=== PATIENT | female | born 1930 | race Caucasian/White ===

== ENCOUNTER 2016-12-16 15:23 | Inpatient (IN) | payer MEDICARE ==
[2016-12-16] MEDS ORDERED: Ondansetron HCl/PF 4 MG/2 ML Vial ONE ×3 (16:16→19:32)
[2016-12-16 16:27] LABS: #Eosinphils 0.1 thou/uL (0.0-0.7); #Lymphocytes 0.6 thou/uL (1.20-3.40); #Monocytes 0.6 thou/uL (0.11-0.59); #Neutrophils 5.3 thou/uL (1.40-6.50); %Basophils 0.7 % (0.0-1.0); %Eosinophils 0.8 % (0.0-10.0); %Monocytes 9.3 % (0.0-10.0); Hematocrit 40.6 % (36.0-47.0); Mean Platelet Volume 5.7 fL (7.4-10.4); Red Blood Cell (RBC) Count 4.38 mill/uL (4.20-5.40); White Blood Cell (WBC) Count 6.5 thou/uL (4.8-10.8)
[2016-12-16 16:42] LABS: ALT (SGPT) 13 U/L (0-55); AST (SGOT) 16 U/L (5-34); Alkaline Phosphatase 61 U/L (40-150); Anion Gap 13 mmol/L (10-20); BUN (Urea Nitrogen) 5 mg/dL (9.8-20.1); Bilirubin, Total 0.7 mg/dL (0.2-1.2); Calc. Creatinine Clearance 0 mL/min (70-130); Calcium 9.5 mg/dL (7.8-10.44); Carbon Dioxide 27 mmol/L (23-31); Chloride 87 mmol/L (98-107); Estimated GFR-MDRD Greater than 90; Globulin 2.7 g/dL (2.4-3.5); Lipase 15 U/L (8-78); Protein, Total 6.8 g/dL (5.8-8.1)
[2016-12-16 17:11] LABS: Bilirubin Negative (Negative); Blood, Urine Trace (Negative); Glucose, Urine (Dipstick) Negative (Negative); Ketone, Urine Negative (Negative); Nitrite Positive (Negative); Protein, Urine (Dipstick) 30 mg/dL (Neg-Trace); Urobilinogen 0.2 mg/dL (0.2-1.0)
[2016-12-16 17:26] LABS: Bacteria/HPF 4+ HPF (None Seen); Hyaline Casts/LPF NONE SEEN LPF (0-3 Hyaline); Oval Fat Bodies/HPF None Seen HPF (None Seen); RBC/HPF 0-3 HPF (0-3); Renal Epithelial None Seen HPF (0-3); Sperm/HPF None Seen HPF (None Seen); Squamous Epithelial 0-3 HPF (0-3); Transitional Epithelial NONE SEEN HPF (0-3); Trichomonas/HPF None Seen HPF (None Seen); WBC/HPF 0-3 HPF (0-3); Yeast-All Forms None Seen HPF (None Seen)
[2016-12-16] MEDS ORDERED: Sodium Chloride 0.9% 100 ML ONE (18:03)
[2016-12-16] MEDS ORDERED: cefTRIAXone\\ROCEPHIN 1 GM VIAL ONE (18:03)
--- NOTE | 2016-12-16 19:28 | PICIS ---
[facility] EMERGENCY RECORD TRIAGE (FriDec 16, 2016 15:34 LGIB) TRIAGE NOTES: abd pain that described as sharp that started last night. normal bowel movements. feels like her stomach is "swollen". no nausea, no diarrhea. (FriDec 16, 2016 15:34 LGIB) PATIENT: NAME: Ann Mcgarry, AGE: 86, GENDER: female, : Sun 1930, TIME OF GREET: FriDec 16, 2016 15:23, PREFERRED LANGUAGE: Slovak, ETHNICITY: Not or , ECODE BILLING MAP: [facility], SSN: [id number], Zip Code: [address], KG WEIGHT: 56.70, PHONE: , , , PERSON ID: [id number], PAYMENT: [place] Medicare, PCP: MD Acosta Kyle. (FriDec 16, 2016 15:34 LGIB) COMPLAINT: abd pain. (FriDec 16, 2016 15:34 LGIB) ADMISSION: URGENCY: 3 Urgent, ADMISSION SOURCE: Home, TRANSPORT: CAR, BED: TRIAGE. (FriDec 16, 2016 15:34 LGIB) SIRS SCORING: Heart Rate 55-109 (0), Temp range 96.8-101.1 (0), respiratory rate 12-24 (0), Mental Status altered: no (0), Total SIRS Score 0. (17:34 LGIB) PROVIDERS: TRIAGE NURSE: Tatiana Neal RN. (FriDec 16, 2016 15:34 LGIB) PREVIOUS VISIT ALLERGIES: Penicillins. (FriDec 16, 2016 15:34 LGIB) Penicillins. (15:37 LGIB) KNOWN ALLERGIES Penicillins CURRENT MEDICATIONS Unable to obtain (17:15 KMOR) lisinopril: TABLET : Strength - 20 mg : ORAL Patient Dose: 1 tab(s) Oral once a day. (18:33 LGIB) amLODIPine: TABLET : Strength - 10 mg : ORAL Patient Dose: 1 tab(s) Oral once a day. (18:33 LGIB) Eliquis: TABLET : Strength - 5 mg : ORAL Patient Dose: 1 tab(s) Oral 2 times a day. (18:34 LGIB) meTOPROLOL ta-hydrochlorothiaz: TABLET : Strength - 100 mg-50 mg : ORAL Patient Dose: 1 tab(s) Oral once a day. (18:34 LGIB) VITAL SIGNS VITAL SIGNS: Pulse: 53, Resp: 18 (Non-Labored), Pain: 7, O2 sat: 100 on Room Air, Time: 12/16/2016 15:34. (15:34 LGIB) BP: 195/64, Time: 12/16/2016 15:37. (15:37 LGIB) BP: 172/74, Pulse: 62, Resp: 18, Pain: 6, O2 sat: 98 on Room Air, Time: 12/16/2016 16:30. (16:30 KMOR) Temp: 97.9 (Axillary), Time: 12/16/2016 16:39. (16:39 KMOR) BP: 167/69, Pulse: 67, Resp: 18 (Non-Labored), O2 sat: 97 on Room Air, Time: 12/16/2016 18:30. (18:30 LGIB) &a-1R&a+25V*p+0X*i3547Q*c202B*c15G*c2P*p-0X&a-25V&a+1R Name: Ann Mcgarry : 1930 F86 MedRec: [id number] AcctNum: [id number] Prepared: FriDec 16, 2016 19:17 by Interface Page 1 of 13 pMD [facility] EMERGENCY RECORD NURSING ASSESSMENT: ABDOMEN (16:40 KMOR) CONSTITUTIONAL: Patient arrives ambulatory, Unsteady gait, Assistance to cart, History obtained from patient, Patient appears comfortable, Patient cooperative, Patient alert, Oriented to person, place and time, Skin warm, Skin dry, Skin normal in color, Mucous membranes pink, Mucous membranes moist, Patient is well-groomed, Patient complains of Abdominal pain, Diffuse abdominal pain started last night. No nausea, no vomiting no diarrhea. PAIN: aching pain, sharp pain, diffusely, on a scale 0-10 patient rates pain as 6. ABDOMEN: Abdomen assessment findings include abdomen symmetrical, Abdomen soft, non-tender, Bowel sound normal, no associated nausea, no associated vomiting, no associated diarrhea, no associated constipation, Date of last bowel movement: 12/15/2016. LMP: Last menstrual period not applicable due to hysterectomy history. GENITOURINARY FEMALE: no associated urinary complaints. NOTES: Patient tolerated procedure well. NURSING ASSESSMENT: FALL RISK (18:43 LGIB) FALL RISK: Fall risk assessment findings include: no history of falls (0), No bed rest greater than 2 days (0), No use of level of consciousness altering agents with mentation or cognitive changes (0), No change in blood pressure (0), No sensory deficits (0), Impaired mobility (3), No neurologic diagnosis (0), No elimination problems (0), No confusion (0), Total score 3. NURSING ASSESSMENT: SKIN (18:43 LGIB) SKIN: Notes: BLANCHABLE REDNESS TO SACRUM. NURSING PROCEDURE: ADMISSION (18:54 LGIB) ADMISSION: Patient admitted to a medical-surgical unit, room number 104, Report called to, Mariah, Provided opportunity to answer questions, Report called at 12/16/2016 18:54, Patient Admited at. 12/16/2016 18:55, Acuity level urgent, Transported via cart/stretcher, Accompanied by registered nurse, Transported with disposable blood pressure cuff, Transported with saline lock, Summary of Care printed. BELONGINGS: Belongings and valuables with patient at time of admission include:, Belongings remain with patient, Valuables remain with patient. NURSING PROCEDURE: FRESCO ARTIST (16:30 KMOR) PATIENT IDENTIFIER: Patient actively involved in identification process, Patient's identity verified by patient stating name, Patient's identity verified by patient stating date. FRESCO ARTIST: Patient placed on cardiac nurse practitioner, Heart rate: &a-1R&a+25V*p+0X*h5085X*c202B*c15G*c2P*p-0X&a-25V&a+1R Name: Ann Mcgarry : 1930 F86 MedRec: [id number] AcctNum: [id number] Prepared: FriDec 16, 2016 19:17 by Interface Page 2 of 13 pMD [facility] EMERGENCY RECORD 62, showing normal sinus rhythm, Patient placed on non-invasive blood pressure monitor, with disposable blood pressure cuff applied, Patient placed on continuous pulse oximetry, Adult/pediatric oxisensor applied, Oxygen saturation 98%. NOTES: Patient tolerated procedure well. NURSING PROCEDURE: EKG CHART (16:32 KMOR) PATIENT IDENTIFIER: Patient actively involved in identification process, Patient's identity verified by patient stating name, Patient's identity verified by patient stating date. EKG: EKG indicated for abdominal pain, 12 lead EKG performed on the left chest, done by SEEMA Hernandez, first EKG. FOLLOW-UP: After procedure, EKG for interpretation given to Dr. nash. NOTES: Patient tolerated procedure well. NURSING PROCEDURE: ELIMINATION (16:35 KMOR) PATIENT IDENTIFIER: Patient actively involved in identification process, Patient's identity verified by patient stating name, Patient's identity verified by patient stating date. ELIMINATION: Patient given bedpan, Urine output (mL) 300ml, Urine specimen collected, labeled in the presence of the patient and sent to lab. NURSING PROCEDURE: IV (16:00 KMOR) PATIENT IDENITIFIER: Patient actively involved in identification process, Patient's identity verified by patient stating name, Patient's identity verified by patient stating date. IV SITE 1: IV therapy indicated for hydration, IV therapy indicated for medication administration, IV established, to the right antecubital, using a 20 gauge catheter, Saline lock established, Labs drawn at time of placement, labeled in the presence of the patient and sent to lab. FOLLOW-UP SITE 1: After procedure, 2x3 ensure dressing applied. NOTES: Procedure done by SEEMA Frazeir. NURSING PROCEDURE: NURSE NOTES (17:33 LGIB) NURSES NOTES: Notes: pt voided on bedpan for the second time. NURSING PROCEDURE: TRANSPORT TO TESTS (17:52 LGIB) TRANSPORT TO TESTS: Transport indicated to facilitate diagnosis, Patient transported to CT scan, via cart, Accompanied by x-ray photovoltaic technician. NURSING PROCEDURE: URINE COLLECTION (16:50 KMOR) PATIENT IDENTIFIER: Patient actively involved in identification process, Patient's identity verified by patient stating name, Patient's identity verified by patient stating date. URINE COLLECTION FEMALE: Urine collected by mid-stream clean &a-1R&a+25V*p+0X*s5446E*c202B*c15G*c2P*p-0X&a-25V&a+1R Name: Ann Mcgarry : 1930 F86 MedRec: [id number] AcctNum: [id number] Prepared: FriDec 16, 2016 19:17 by Interface Page 3 of 13 pMD [facility] EMERGENCY RECORD catch, Output amount (mL) 300ml, urine yellow in color, and clear, Specimen labeled in the presence of the patient and sent to lab. ORDER DETAILS Order Name: FRESCO ARTIST ED, Status: Done, Time: 16:28 12/16/2016, User: HILTON, - Ordered for: DO Hayden Allen, - Entered by: DO Hayden Allen - FriDec 16, 2016 16:13, - Quantity: 1, Order Name: CBC with Differential, Status: Active, Time: 16:13 12/16/2016, User: OTISRI, - Ordered for: Hayden, DO Allen, - Entered by: DO Hayden Allen - FriDec 16, 2016 16:13, - Quantity: 1, Order Name: Comprehensive Metabolic Panel, Status: Active, Time: 16:13 12/16/2016, User: OTISRI, - Ordered for: [place], DO Allen, - Entered by: DO Hayden Allen - FriDec 16, 2016 16:13, - Quantity: 1, Order Name: CT Abdomen Pelvis W Con, Status: Active, Time: 16:13 12/16/2016, User: OTISRI, - Ordered for: [place], DO, Allen, - Entered by: DO Hayden Allen - FriDec 16, 2016 16:13, - Quantity: 1, Order Name: Culture, Urine, Status: Active, Time: 17:38 12/16/2016, User: MBRI, - Ordered for: Hayden, DO, Allen, - Entered by: DO Hayden Allen - FriDec 16, 2016 17:38, - Quantity: 1, Order Name: Diet: Nothing by Mouth (NPO), Status: Done, Time: 16:28 12/16/2016, User: JACEIB, - Ordered for: [place], DO, Allen, - Entered by: DO Hayden Allen - FriDec 16, 2016 16:13, - Quantity: 1, Order Name: EKG 12 Lead in Emergency Room, Status: Active, Time: 16:13 12/16/2016, User: VI, - Ordered for: DO Nash Matthew, - Entered by: DO Nash Matthew - FriDec 16, 2016 16:13, - Quantity: 1, Order Name: Lipase, Status: Active, Time: 16:13 12/16/2016, User: VI, - Ordered for: DO Nash Matthew, - Entered by: DO Nash Matthew - FriDec 16, 2016 16:13, - Quantity: 1, Order Name: SALINE LOCK, Status: Done, Time: 16:28 12/16/2016, User: [facility], - Ordered for: DO Nash Matthew, - Entered by: DO Nash Matthew - FriDec 16, 2016 16:13, - Quantity: 1, &a-1R&a+25V*p+0X*o0381O*c202B*c15G*c2P*p-0X&a-25V&a+1R Name: Ann Mcgarry : 1930 F86 MedRec: [id number] AcctNum: [id number] Prepared: FriDec 16, 2016 19:17 by Interface Page 4 of 13 pMD [facility] EMERGENCY RECORD Order Name: Urinalysis w/ Rflx Microscopic, Status: Active, Time: 16:13 12/16/2016, User: VI, - Ordered for: DO Nash Matthew, - Entered by: DO Nash Matthew - FriDec 16, 2016 16:13, - Quantity: 1. MEDICATION ADMINISTRATION SUMMARY Drug Name: *ondansetron HCl intravenous, Dose Ordered: 4 mg, Route: IV Push, Status: Given, Time: 19:00 12/16/2016, Drug Name: morphine injection, Dose Ordered: 4 mg, Route: IV Push, Status: Given, Time: 18:54 12/16/2016, Drug Name: cefTRIAXone injection, Dose Ordered: 2 g, Route: IV Piggy Back, Status: Given, Time: 18:16 12/16/2016, Drug Name: Apresoline, Dose Ordered: 10 mg, Route: IV Push, Status: Given, Time: 18:10 12/16/2016, Drug Name: ondansetron HCl intravenous, Dose Ordered: 4 mg, Route: IV Push, Status: Given, Time: 17:18 12/16/2016, Drug Name: morphine injection, Dose Ordered: 4 mg, Route: IV Push, Status: Given, Time: 16:25 12/16/2016, Drug Name: sodium chloride 0.9 % intravenous, Dose Ordered: 500 mL, Route: IV Fluid Infusion, Status: Given, Time: 16:23 12/16/2016, Drug Name: ondansetron HCl intravenous, Dose Ordered: 4 mg, Route: IV Push, Status: Given, Time: 16:23 12/16/2016, *Additional information available in notes, Detailed record available in Medication Service section. MEDICATION SERVICE Apresoline: Order: Apresoline (hydralazine HCl) - Dose: 10 mg : IV Push Schedule: Now Ordered by: Allen Nash DO Entered by: Allen Nash DO FriDec 16, 2016 17:57 , Acknowledged by: Tatiana Neal RN FriDec 16, 2016 18:03 Documented as given by: Tatiana Neal RN FriDec 16, 2016 18:10 Patient, Medication, Dose, Route and Time verified prior to administration. IV SITE #1 IVP, subsequent different medication, Slowly, Catheter placement confirmed via flush prior to administration, IV site without signs or symptoms of infiltration during medication administration, No swelling during administration, No drainage during administration, IV flushed after administration, Correct patient, time, route, dose and medication confirmed prior to administration, Patient advised of actions and side-effects prior to administration, Allergies confirmed and medications reviewed prior to administration, Patient in position of comfort, Side rails up, Cart in lowest position, Family at bedside. : Follow Up : Decreased blood pressure, _IV SITE #1:_. (18:18 LGIB) cefTRIAXone injection: Order: cefTRIAXone injection (ceftriaxone &a-1R&a+25V*p+0X*l6819G*c202B*c15G*c2P*p-0X&a-25V&a+1R Name: Ann Mcgarry Garry : 1930 F86 MedRec: [id number] AcctNum: [id number] Prepared: FriDec 16, 2016 19:17 by Interface Page 5 of 13 pMD [facility] EMERGENCY RECORD sodium) - Dose: 2 g : IV Piggy Back POTENTIAL ALLERGY REACTION: 'Penicillins' - Benefits outweigh risks Schedule: Now Ordered by: Allen Nash DO Entered by: Allen Nash DO FriDec 16, 2016 17:39 , Acknowledged by: Tatiana Neal RN FriDec 16, 2016 17:41 Documented as given by: Tatiana Neal RN FriDec 16, 2016 18:16 Patient, Medication, Dose, Route and Time verified prior to administration. IV SITE #1 IVPB or drip, initial infusion, IVPB mixed in: 100ml, Fluid: 0.9NS, via primary tubing, on an IV pump, at 200 ml/hr, Catheter placement confirmed via flush prior to administration, IV site without signs or symptoms of infiltration during medication administration, No swelling during administration, No drainage during administration, IV flushed after administration, Correct patient, time, route, dose and medication confirmed prior to administration, Patient advised of actions and side-effects prior to administration, Allergies confirmed and medications reviewed prior to administration, Patient in position of comfort, Side rails up, Cart in lowest position, Family at bedside. : Follow Up : _IV SITE #1:_, Medication infusion discontinued, on FriDec 16, 2016 18:50, 35 minutes, ., Total amount infused: 100 ml. (18:50 BMAD) morphine injection: Order: morphine injection (morphine sulfate) - Dose: 4 mg : IV Push Ordered by: Allen Nash DO Entered by: Allen Nash DO FriDec 16, 2016 16:13 , Acknowledged by: Tatiana Neal RN FriDec 16, 2016 16:15 Documented as given by: Tatiana Neal RN FriDec 16, 2016 16:25 Patient, Medication, Dose, Route and Time verified prior to administration. IV SITE #1 IVP, subsequent different medication, Slowly, Awake and alert- acceptable, Catheter placement confirmed via flush prior to administration, IV site without signs or symptoms of infiltration during medication administration, No swelling during administration, No drainage during administration, IV flushed after administration, Correct patient, time, route, dose and medication confirmed prior to administration, Patient advised of actions and side-effects prior to administration, Allergies confirmed and medications reviewed prior to administration, Patient in position of comfort, Side rails up, Cart in lowest position, Family at bedside. : Follow Up : Response assessment performed, No signs or symptoms of allergic reaction noted, Decreased pain, _IV SITE #1:_. (17:17 KMOR) morphine injection: Order: morphine injection (morphine sulfate) - Dose: 4 mg : IV Push Ordered by: Allen Nash DO Entered by: Allen Nash DO FriDec 16, 2016 18:52 , Acknowledged by: Mary Zamora RN FriDec 16, 2016 18:53 Documented as given by: Dino Duran RN FriDec 16, 2016 18:54 &a-1R&a+25V*p+0X*l8895C*c202B*c15G*c2P*p-0X&a-25V&a+1R Name: Ann Mcgarry : 1930 F86 MedRec: [id number] AcctNum: [id number] Prepared: FriDec 16, 2016 19:17 by Interface Page 6 of 13 pMD [facility] EMERGENCY RECORD Patient, Medication, Dose, Route and Time verified prior to administration. Amount given: 4mg, IV SITE #1 IVP, subsequent different medication, Slowly, Awake and alert- acceptable, Catheter placement confirmed via flush prior to administration, IV site without signs or symptoms of infiltration during medication administration, No swelling during administration, No drainage during administration, IV flushed after administration, Correct patient, time, route, dose and medication confirmed prior to administration, Patient advised of actions and side-effects prior to administration, Allergies confirmed and medications reviewed prior to administration, Administered by Mary STEPHENSON, Patient in position of comfort, Side rails up, Cart in lowest position, Family at bedside. ondansetron HCl intravenous: Order: ondansetron HCl intravenous (ondansetron HCl) - Dose: 4 mg : IV Push Ordered by: Allen Nash DO Entered by: Allen Nash DO FriDec 16, 2016 16:13 , Acknowledged by: Tatiana Neal RN FriDec 16, 2016 16:15 Documented as given by: Tatiana Neal RN FriDec 16, 2016 16:23 Patient, Medication, Dose, Route and Time verified prior to administration. IV SITE #1 IVP, initial medication, Slowly, Catheter placement confirmed via flush prior to administration, IV site without signs or symptoms of infiltration during medication administration, No swelling during administration, No drainage during administration, IV flushed after administration, Correct patient, time, route, dose and medication confirmed prior to administration, Patient advised of actions and side-effects prior to administration, Allergies confirmed and medications reviewed prior to administration, Patient in position of comfort, Side rails up, Cart in lowest position, Family at bedside. : Follow Up : Response assessment performed, No signs or symptoms of allergic reaction noted, _IV SITE #1:_. (17:18 KMOR) ondansetron HCl intravenous: Order: ondansetron HCl intravenous (ondansetron HCl) - Dose: 4 mg : IV Push Ordered by: Allen Nash DO Entered by: Allen Nash DO FriDec 16, 2016 17:45 , Acknowledged by: Tatiana Neal RN FriDec 16, 2016 17:46 Documented as given by: Tatiana Neal RN FriDec 16, 2016 17:18 Patient, Medication, Dose, Route and Time verified prior to administration. IV SITE #1 IVP, subsequent different medication, Slowly, Catheter placement confirmed via flush prior to administration, IV site without signs or symptoms of infiltration during medication administration, No swelling during administration, No drainage during administration, IV flushed after administration, Correct patient, time, route, dose and medication confirmed prior to administration, Patient advised of actions and side-effects prior to administration, Allergies confirmed and medications reviewed prior to administration, Patient in position of comfort, Side rails up, Cart in lowest &a-1R&a+25V*p+0X*m0594E*c202B*c15G*c2P*p-0X&a-25V&a+1R Name: Ann Mcgarry : 1930 F86 MedRec: [id number] AcctNum: [id number] Prepared: FriDec 16, 2016 19:17 by Interface Page 7 of 13 pMD [facility] EMERGENCY RECORD position, Family at bedside. ondansetron HCl intravenous: Order: ondansetron HCl intravenous (ondansetron HCl) - Dose: 4 mg : IV Push Notes: VOV DR NASH Ordered by: Allen Nash DO Entered by: Tatiana Neal RN FriDec 16, 2016 19:00 Documented as given by: Tatiana Neal RN FriDec 16, 2016 19:00 Patient, Medication, Dose, Route and Time verified prior to administration. IV SITE #1 IVP, subsequent different medication, Slowly, Catheter placement confirmed via flush prior to administration, IV site without signs or symptoms of infiltration during medication administration, No swelling during administration, No drainage during administration, IV flushed after administration, Correct patient, time, route, dose and medication confirmed prior to administration, Patient advised of actions and side-effects prior to administration, Allergies confirmed and medications reviewed prior to administration, Patient in position of comfort, Side rails up, Cart in lowest position, Family at bedside. sodium chloride 0.9 % intravenous: Order: sodium chloride 0.9 % intravenous (0.9 % sodium chloride) - Dose: 500 mL : IV Fluid Infusion Schedule: Now Ordered by: Allen Nash DO Entered by: Allen Nash DO FriDec 16, 2016 16:13 , Acknowledged by: Tatiana Neal RN FriDec 16, 2016 16:15 Documented as given by: Tatiana Neal RN FriDec 16, 2016 16:23 Patient, Medication, Dose, Route and Time verified prior to administration. IV SITE #1 IV fluids established for hydration, IV SITE #1 into right antecubital, IV SITE #1 1st bag hung, amount 500ml hung, via primary tubing, Catheter placement confirmed via flush prior to administration, IV site without signs or symptoms of infiltration during medication administration, No swelling during administration, No drainage during administration, IV flushed after administration, Correct patient, time, route, dose and medication confirmed prior to administration, Patient advised of actions and side-effects prior to administration, Allergies confirmed and medications reviewed prior to administration, Patient in position of comfort, Side rails up, Cart in lowest position, Family at bedside. : Follow Up : _IV SITE #1:_, IV fluid infusion discontinued, on FriDec 16, 2016 17:15, 55 minutes, ., Total amount infused: 500ml, IV Line flushed after administration. (17:17 KMOR) HPI ABDOMINAL PAIN (16:16 MBRI) CHIEF COMPLAINTS: Patient presents for evaluation of abdominal pain. HISTORIAN: History provided by patient, History provided by patient's family. LOCATION FEMALE: Symptoms are localized, most severe periumbilical, no radiation, No migration of pain. QUALITY: &a-1R&a+25V*p+0X*l0958G*c202B*c15G*c2P*p-0X&a-25V&a+1R Name: Ann Mcgarry : 1930 F86 MedRec: [id number] AcctNum: [id number] Prepared: FriDec 16, 2016 19:17 by Interface Page 8 of 13 pMD [facility] EMERGENCY RECORD Pain is dull in nature, described as aching. SEVERITY: Maximum severity of symptoms moderate, Currently symptoms are moderate. TIME COURSE: Gradual onset of symptoms, 12 hours, Symptoms are intermittent, There has been no change in the patient's symptoms over time. ASSOCIATED WITH FEMALE: No associated recent antibiotic use, No associated bright red blood per rectum, No associated chills, No associated constipation, No associated diarrhea, No associated fever, No associated flank pain, No associated hematemesis, No associated hematuria, No associated loss of appetite, No associated melena, No associated nausea, No associated trauma, No associated recent travel, No associated inability to tolerate oral intake, Associated with urinary tract infection signs or symptoms, frequency, No associated vomiting. RELIEVED BY: Patient's condition relieved by nothing. EXACERBATED BY: Patient's condition exacerbated by nothing. RISK FACTORS FEMALE: No ectopic risk factors present, Abdominal aortic aneurysm risk factors, include age over 40 years, Coronary artery disease risk factors, include high cholesterol, include hypertension. ROS (16:11 MBRI) CONSTITUTIONAL: Negative constitutional review of systems, Historian denies chills, denies fever. EYES: Negative eye review of systems. ENT: Historian denies rhinorrhea, denies sore throat. CARDIOVASCULAR: Historian denies chest pain, denies dyspnea on exertion. RESPIRATORY: Historian denies cough, denies shortness of breath. GI: Negative gastrointestinal review of systems, Historian denies abdominal pain, denies diarrhea, denies nausea, denies vomiting. GENITOURINARY FEMALE: Historian denies dysuria, reports frequency, denies hematuria, denies urine output changes, denies urinary retention. MUSCULOSKELETAL: Historian denies injury, Denies any musculoskeletal pain. SKIN: Negative skin review of systems, Historian denies skin changes. NEUROLOGIC: Negative neurologic review of systems, Historian denies focal weakness, denies sensory changes. HEMO/LYMPHATIC: Historian reports abnormal blood clotting, reports easy bruising. PAST MEDICAL HISTORY (15:37 LGIB) MEDICAL HISTORY: Flu vaccine up to date, BREAST CANCER, Tetanus immunization up to date, Pneumococcal vaccine up to date, Past medical history includes history of hyperlipidemia, high cholesterol, Past medical history includes history of hypertension, which has been treated5. 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 FEMALE SURGICAL HISTORY: 4 EYE SURGERIES, LEFT SIDE MASTECTOMY, STEEL PLATE IN RIGHT WRIST, Surgical history of appendectomy, Surgical history of hysterectomy Mouth Sx april 20, 2015. PSYCHIATRIC HISTORY: No previous psychiatric history. SOCIAL HISTORY: Patient drinks every day, more than 5 drinks per day, Alcohol history notes: beer, Patient denies drug use, Patient has no smoking history. FAMILY HISTORY: Family istory is not significant. PHYSICAL EXAM (16:11 MBRI) CONSTITUTIONAL: Vital Signs Reviewed, Nursing notes reviewed. HEAD: Head exam included findings of head atraumatic, normocephalic. EYES: Eye exam included findings of eyelids normal to inspection, Pupils equally round and reactive to light, Extraocular muscles intact. 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 NECK: Neck exam normal, no cervical adenopathy, no tenderness. RESPIRATORY CHEST: Respiratory exam included findings of no respiratory distress, Breath sounds clear, No wheezing, No rales, No rhonchi. CARDIOVASCULAR: Cardiovascular exam included findings of heart rate regular rate and rhythm, Heart sounds normal, Carotids normal. ABDOMEN FEMALE: Abdominal exam included findings of abdomen tender, periumbilical, mild intensity, Bowel sounds normal, Liver normal, no distension, no mass, no pulsatile masses, no peritoneal signs, no rigidity, no guarding, no rebound, no umbilical hernia, no ventral hernia. BACK: Back exam included findings of normal inspection, no tenderness. UPPER EXTREMITY: Upper extremity exam included findings of inspection normal, Radial pulse normal, no cyanosis, no clubbing, no edema. LOWER EXTREMITY: Lower extremity exam included findings of inspection normal, Range of motion normal, Motor strength normal, Sensation intact, Pedal pulse normal, no cyanosis, no clubbing, Edema present, to bilateral lower extremities, +1, no calf tenderness, no palpable cords. NEURO: Neuro exam findings include patient oriented to person, place and time, Speech normal, no focal motor deficits. SKIN: Skin exam included findings of skin warm, dry, and normal in color. LAB INTERPRETATION (18:15 MBRI) &a-1R&a+25V*p+0X*k1936Y*c202B*c15G*c2P*p-0X&a-25V&a+1R Name: nAn Mcgarry : 1930 F86 MedRec: [id number] AcctNum: [id number] Prepared: FriDec 16, 2016 19:17 by Interface Page 10 of 13 D [facility] EMERGENCY RECORD INTERPRETATION: I reviewed the lab results. EVENTS TRANSFER: Triage to Emergency Triage. (FriDec 16, 2016 15:34 LGIB) Emergency Triage to Waiting. (15:37 LGIB) Emergency Waiting to Emergency Room -02. (15:57 KMOR) Removed from Emergency Emergency Room -02. (19:09 LGIB) RADIOLOGYINTERPRETATION (18:15 MBRI) ABDOMEN: Abdomen/pelvis CT scan, with contrast shows, no abscess, no appendicitis, no diverticulitis, no fluid in abdomen, no fluid in pelvis, no free air, no mass, no obstruction, Other findings: some stenosis of the celiac art but does fill. Scattered loops of dilated sm bowel but no obs noted. 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 EKG INTERPRETATION (18:23 MBRI) 12 LEAD EKG INTERPRETATION: 12 lead EKG interpreted by Emergency Department Physician at time of study, 12 lead EKG shows normal sinus rhythm, Rate (beats per minute): 60, with no ectopics, Conduction normal, ST segments normal, Tropic normal, Other findings include:, left ventricular hypertrophy, septal infarct, age undetermined. O2SAT INTERPRETATION (16:04 MBRI) O2SAT: Oxygen saturation interpretation: Normal. DOCTOR NOTES (18:24 MBRI) TEXT: Pt with UTI along with n/v and hyponatremia. Will benefit from med admission and further treatment of conditions. Discussed with family and they agree. Accepted by Dr Acosta for admission. Pt BP improved and hx of same that runs high regularly. No cardiac issues noted. Pt stable for Med admission. PATIENT STATUS: Patient has stabilized since arrival to emergency department. PATIENT PLAN: The patient will be admitted to the hospital, Initial physician orders were written for patient as discussed with admitting physician, The patient will be admitted to a medical floor. DATA REVIEWED: Lab data reviewed, Reviewed EKG, Discussed with PMD. PROBLEM LIST No recorded problems DIAGNOSIS (18:26 MBRI) FINAL: PRIMARY: UTI, ADDITIONAL: Hypertension, Hyponatremia. DISPOSITION &a-1R&a+25V*p+0X*y7060C*c202B*c15G*c2P*p-0X&a-25V&a+1R Name: Ann Mcgarry : 1930 F86 MedRec: [id number] AcctNum: [id number] Prepared: FriDec 16, 2016 19:17 by Interface Page 11 of 13 pMD [facility] EMERGENCY RECORD PATIENT: Disposition Type: Discharge, Disposition: *Discharge Home, Condition: Improved. (17:13 MBRI) Disposition Type: (none), Disposition: (none), Condition: (none). (17:28 MBRI) Disposition Type: Admit, Disposition: [facility], Condition: Fair. (18:26 MBRI) Patient left the department. (19:09 LGIB) PRESCRIPTION No recorded prescriptions IMAGING ADMISSION ORDERS: Image captured from scanner. (18:23 LGIB) *EKG: Image captured from scanner. (18:29 KMOR) *SUPPLY CHARGE SHEET: Image captured from scanner. (19:03 LGIB) RESULTS LABORATORY: Lipase Collection DT: FriDec 16, 2016 16:26, Lipase 15 U/L, Range (8-78). (17:01 [facility]) Comprehensive Metabolic Panel Collection DT: FriDec 16, 2016 16:26, *Sodium 124 - L mmol/L, Range (136-145), *Potassium 3.1 - L mmol/L, Range (3.5-5.1), *Chloride 87 - L mmol/L, Range (98-107), Carbon Dioxide 27 mmol/L, Range (23-31), Anion Gap 13 mmol/L, Range (10-20), *BUN (Urea Nitrogen) 5 - L mg/dL, Range (9.8-20.1), *Creatinine 0.58 - L mg/dL, Range (0.6-1.1), Estimated GFR-MDRD Greater than 90 , Reference Range for Estimated GFR: Greater than 90, mL/min/1.73 m2 NOTE: The MDRD equation has not been validated for use, with the elderly (over 70 years of age), women, patients with, serious comorbid condition or persons with extremes of body size, muscle, mass, or nutritional status. , *Glucose 144 - H mg/dL, Range (83-110), Calcium 9.5 mg/dL, Range (7.8-10.44), Bilirubin, Total 0.7 mg/dL, Range (0.2-1.2), Protein, Total 6.8 g/dL, Range (5.8-8.1), NOTE: Plasma values are generally 0.3 to 0.5 g/dL higher than serum values, due to the presence of fibrinogen. , Albumin 4.1 g/dL, Range (3.4-4.8), Globulin 2.7 g/dL, Range (2.4-3.5), Alb/Glob Ratio 1.5 g/dL, Range (1.2-2.2), Alkaline Phosphatase 61 U/L, Range (40-150), AST (SGOT) 16 U/L, Range (5-34), ALT (SGPT) 13 U/L, Range (0-55). (17:01 [facility]) CBC with Differential Collection DT: FriDec 16, 2016 16:26, &a-1R&a+25V*p+0X*l8007R*c202B*c15G*c2P*p-0X&a-25V&a+1R Name: Ann Mcgarry : 1930 F86 MedRec: [id number] AcctNum: [id number] Prepared: FriDec 16, 2016 19:17 by Interface Page 12 of 13 pMD [facility] EMERGENCY RECORD White Blood Cell (WBC) Count 6.5 thou/uL, Range (4.8-10.8), Red Blood Cell (RBC) Count 4.38 mill/uL, Range (4.20-5.40), Hemoglobin 13.8 g/dL, Range (12.0-16.0), Hematocrit 40.6 %, Range (36.0-47.0), Mean Corpuscular Volume 92.8 fl, Range (81.0-99.0), *Mean Corpuscular Hemoglobin 31.5 - H pg, Range (27.0-31.0), Mean Corpuscular HGB CONC 33.9 g/dL, Range (32.0-36.0), *RBC Distribution Width 10.4 - L %, Range (11.5-14.5), Platelet Count 350 thou/uL, Range (130-400), *Mean Platelet Volume 5.7 - L fL, Range (7.4-10.4), *%Neutrophils 80.7 - H %, Range (42.0-75.0), *%Lymphocytes 8.5 - L %, Range (21.0-51.0), %Monocytes 9.3 %, Range (0.0-10.0), %Eosinophils 0.8 %, Range (0.0-10.0), %Basophils 0.7 %, Range (0.0-1.0), #Neutrophils 5.3 thou/uL, Range (1.40-6.50), *#Lymphocytes 0.6 - L thou/uL, Range (1.20-3.40), *#Monocytes 0.6 - H thou/uL, Range (0.11-0.59), #Eosinphils 0.1 thou/uL, Range (0.0-0.7), #Basophils 0.0 thou/uL, Range (0.0-0.2). (17:01 MBRI) Urinalysis w/ Rflx Microscopic Collection DT: FriDec 16, 2016 17:09, Color Yellow , Range (Yellow), Clarity Hazy , Range (Clear), Specific [place], Urine 1.020 , Range (1.005-1.030), pH, Urine 8.5 , Range (5.0-9.0), *Leukocyte Moderate - H , Range (Negative), *Nitrite Positive - H , Range (Negative), *Protein, Urine (Dipstick) 30 - H mg/dL, Range (Neg-Trace), Glucose, Urine (Dipstick) Negative mg/dL, Range (Negative), Ketone, Urine Negative mg/dL, Range (Negative), Urobilinogen 0.2 mg/dL, Range (0.2-1.0), Bilirubin Negative , Range (Negative), *Blood, Urine Trace - H , Range (Negative). (17:28 MBRI) Rob: BMAD=SEEMA Duran, Dino KMOR=SEEMA Zamora, Mary LGIB=SEEMA Neal, Tatiana MBRI=DO Nash Matthew &a-1R&a+25V*p+0X*r5592O*c202B*c15G*c2P*p-0X&a-25V&a+1R Name: Ann Mcgarry : 1930 F86 MedRec: [id number] AcctNum: [id number] Prepared: FriDec 16, 2016 19:17 by Interface Page 13 of 13 pMD MTDD
--- NOTE | 2016-12-16 19:32 | ERRECORD ---
[facility] EMERGENCY RECORD HPI ABDOMINAL PAIN (16:16 MBRI) CHIEF COMPLAINTS: Patient presents for evaluation of abdominal pain. HISTORIAN: History provided by patient, History provided by patient's family. LOCATION FEMALE: Symptoms are localized, most severe periumbilical, no radiation, No migration of pain. QUALITY: Pain is dull in nature, described as aching. SEVERITY: Maximum severity of symptoms moderate, Currently symptoms are moderate. TIME COURSE: Gradual onset of symptoms, 12 hours, Symptoms are intermittent, There has been no change in the patient's symptoms over time. ASSOCIATED WITH FEMALE: No associated recent antibiotic use, No associated bright red blood per rectum, No associated chills, No associated constipation, No associated diarrhea, No associated fever, No associated flank pain, No associated hematemesis, No associated hematuria, No associated loss of appetite, No associated melena, No associated nausea, No associated trauma, No associated recent travel, No associated inability to tolerate oral intake, Associated with urinary tract infection signs or symptoms, frequency, No associated vomiting. RELIEVED BY: Patient's condition relieved by nothing. EXACERBATED BY: Patient's condition exacerbated by nothing. RISK FACTORS FEMALE: No ectopic risk factors present, Abdominal aortic aneurysm risk factors, include age over 40 years, Coronary artery disease risk factors, include high cholesterol, include hypertension. ROS (16:11 MBRI) CONSTITUTIONAL: Negative constitutional review of systems, Historian denies chills, denies fever. EYES: Negative eye review of systems. ENT: Historian denies rhinorrhea, denies sore throat. CARDIOVASCULAR: Historian denies chest pain, denies dyspnea on exertion. RESPIRATORY: Historian denies cough, denies shortness of breath. GI: Negative gastrointestinal review of systems, Historian denies abdominal pain, denies diarrhea, denies nausea, denies vomiting. GENITOURINARY FEMALE: Historian denies dysuria, reports frequency, denies hematuria, denies urine output changes, denies urinary retention. MUSCULOSKELETAL: Historian denies injury, Denies any musculoskeletal pain. SKIN: Negative skin review of systems, Historian denies skin changes. NEUROLOGIC: Negative neurologic review of systems, Historian denies focal weakness, denies sensory changes. HEMO/LYMPHATIC: Historian reports abnormal blood clotting, reports easy bruising. &a-1R&a+25V*p+0X*k8921R*c202B*c15G*c2P*p-0X&a-25V&a+1R Name: Ann Mcgarry : 1930 F86 MedRec: [id number] AcctNum: [id number] Prepared: FriDec 16, 2016 19:10 by Interface Page 1 of 5 pMD [facility] EMERGENCY RECORD PAST MEDICAL HISTORY (15:37 LGIB) MEDICAL HISTORY: Flu vaccine up to date, BREAST CANCER, Tetanus immunization up to date, Pneumococcal vaccine up to date, Past medical history includes history of hyperlipidemia, high cholesterol, Past medical history includes history of hypertension, which has been treated5. 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 FEMALE SURGICAL HISTORY: 4 EYE SURGERIES, LEFT SIDE MASTECTOMY, STEEL PLATE IN RIGHT WRIST, Surgical history of appendectomy, Surgical history of hysterectomy Mouth Sx april 20, 2015. PSYCHIATRIC HISTORY: No previous psychiatric history. SOCIAL HISTORY: Patient drinks every day, more than 5 drinks per day, Alcohol history notes: beer, Patient denies drug use, Patient has no smoking history. FAMILY HISTORY: Family istory is not significant. KNOWN ALLERGIES Penicillins CURRENT MEDICATIONS Unable to obtain (17:15 KMOR) lisinopril: TABLET : Strength - 20 mg : ORAL Patient Dose: 1 tab(s) Oral once a day. (18:33 LGIB) amLODIPine: TABLET : Strength - 10 mg : ORAL Patient Dose: 1 tab(s) Oral once a day. (18:33 LGIB) Eliquis: TABLET : Strength - 5 mg : ORAL Patient Dose: 1 tab(s) Oral 2 times a day. (18:34 LGIB) meTOPROLOL ta-hydrochlorothiaz: TABLET : Strength - 100 mg-50 mg : ORAL Patient Dose: 1 tab(s) Oral once a day. (18:34 LGIB) VITAL SIGNS VITAL SIGNS: Pulse: 53, Resp: 18 (Non-Labored), Pain: 7, O2 sat: 100 on Room Air, Time: 12/16/2016 15:34. (15:34 LGIB) BP: 195/64, Time: 12/16/2016 15:37. (15:37 LGIB) BP: 172/74, Pulse: 62, Resp: 18, Pain: 6, O2 sat: 98 on Room Air, Time: 12/16/2016 16:30. (16:30 KMOR) Temp: 97.9 (Axillary), Time: 12/16/2016 16:39. (16:39 KMOR) BP: 167/69, Pulse: 67, Resp: 18 (Non-Labored), O2 sat: 97 on Room Air, Time: 12/16/2016 18:30. (18:30 LGIB) PHYSICAL EXAM (16:11 MBRI) CONSTITUTIONAL: Vital Signs Reviewed, Nursing notes reviewed. HEAD: Head exam included findings of head atraumatic, normocephalic. EYES: Eye exam included findings of eyelids normal to inspection, &a-1R&a+25V*p+0X*a1337T*c202B*c15G*c2P*p-0X&a-25V&a+1R Name: Ann Mcgarry : 1930 F86 MedRec: [id number] AcctNum: [id number] Prepared: FriDec 16, 2016 19:10 by Interface Page 2 of 5 pMD [facility] EMERGENCY RECORD Pupils equally round and reactive to light, Extraocular muscles intact. 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 NECK: Neck exam normal, no cervical adenopathy, no tenderness. RESPIRATORY CHEST: Respiratory exam included findings of no respiratory distress, Breath sounds clear, No wheezing, No rales, No rhonchi. CARDIOVASCULAR: Cardiovascular exam included findings of heart rate regular rate and rhythm, Heart sounds normal, Carotids normal. ABDOMEN FEMALE: Abdominal exam included findings of abdomen tender, periumbilical, mild intensity, Bowel sounds normal, Liver normal, no distension, no mass, no pulsatile masses, no peritoneal signs, no rigidity, no guarding, no rebound, no umbilical hernia, no ventral hernia. BACK: Back exam included findings of normal inspection, no tenderness. UPPER EXTREMITY: Upper extremity exam included findings of inspection normal, Radial pulse normal, no cyanosis, no clubbing, no edema. LOWER EXTREMITY: Lower extremity exam included findings of inspection normal, Range of motion normal, Motor strength normal, Sensation intact, Pedal pulse normal, no cyanosis, no clubbing, Edema present, to bilateral lower extremities, +1, no calf tenderness, no palpable cords. NEURO: Neuro exam findings include patient oriented to person, place and time, Speech normal, no focal motor deficits. SKIN: Skin exam included findings of skin warm, dry, and normal in color. EKG INTERPRETATION (18:23 MBRI) 12 LEAD EKG INTERPRETATION: 12 lead EKG interpreted by Emergency Department Physician at time of study, 12 lead EKG shows normal sinus rhythm, Rate (beats per minute): 60, with no ectopics, Conduction normal, ST segments normal, [place] normal, Other findings include:, left ventricular hypertrophy, septal infarct, age undetermined. 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 Scattered loops of dilated sm bowel but no obs noted. 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 MEDICATION ADMINISTRATION SUMMARY &a-1R&a+25V*p+0X*f7278E*c202B*c15G*c2P*p-0X&a-25V&a+1R Name: Ann Mcgarry : 1930 F86 MedRec: [id number] AcctNum: [id number] Prepared: FriDec 16, 2016 19:10 by Interface Page 3 of 5 pMD [facility] EMERGENCY RECORD Drug Name: *ondansetron HCl intravenous, Dose Ordered: 4 mg, Route: IV Push, Status: Given, Time: 19:00 12/16/2016, Drug Name: morphine injection, Dose Ordered: 4 mg, Route: IV Push, Status: Given, Time: 18:54 12/16/2016, Drug Name: cefTRIAXone injection, Dose Ordered: 2 g, Route: IV Piggy Back, Status: Given, Time: 18:16 12/16/2016, Drug Name: Apresoline, Dose Ordered: 10 mg, Route: IV Push, Status: Given, Time: 18:10 12/16/2016, Drug Name: ondansetron HCl intravenous, Dose Ordered: 4 mg, Route: IV Push, Status: Given, Time: 17:18 12/16/2016, Drug Name: morphine injection, Dose Ordered: 4 mg, Route: IV Push, Status: Given, Time: 16:25 12/16/2016, Drug Name: sodium chloride 0.9 % intravenous, Dose Ordered: 500 mL, Route: IV Fluid Infusion, Status: Given, Time: 16:23 12/16/2016, Drug Name: ondansetron HCl intravenous, Dose Ordered: 4 mg, Route: IV Push, Status: Given, Time: 16:23 12/16/2016, *Additional information available in notes, Detailed record available in Medication Service section. DOCTOR NOTES (18:24 MBRI) TEXT: Pt with UTI along with n/v and hyponatremia. Will benefit from med admission and further treatment of conditions. Discussed with family and they agree. Accepted by Dr Acosta for admission. Pt BP improved and hx of same that runs high regularly. No cardiac issues noted. Pt stable for Med admission. PATIENT STATUS: Patient has stabilized since arrival to emergency department. PATIENT PLAN: The patient will be admitted to the hospital, Initial physician orders were written for patient as discussed with admitting physician, The patient will be admitted to a medical floor. DATA REVIEWED: Lab data reviewed, Reviewed EKG, Discussed with PMD. PROBLEM LIST No recorded problems DIAGNOSIS (18:26 MBRI) FINAL: PRIMARY: UTI, ADDITIONAL: Hypertension, Hyponatremia. PRESCRIPTION No recorded prescriptions DISPOSITION PATIENT: Disposition Type: Discharge, Disposition: *Discharge Home, Condition: Improved. (17:13 MBRI) Disposition Type: (none), Disposition: (none), Condition: (none). (17:28 MBRI) Disposition Type: Admit, Disposition: [facility], &a-1R&a+25V*p+0X*e5516Y*c202B*c15G*c2P*p-0X&a-25V&a+1R Name: Ann Mcgarry Garry : 1930 F86 MedRec: [id number] AcctNum: [id number] Prepared: FriDec 16, 2016 19:10 by Interface Page 4 of 5 pMD [facility] EMERGENCY RECORD Condition: Fair. (18:26 MBRI) Patient left the department. (19:09 LGIB) Rob: KMOR=SEEMA Zamora, Mary LGIB=SEEMA Neal, Tatiana MBRI=DO Blake Matthew &a-1R&a+25V*p+0X*r8016R*c202B*c15G*c2P*p-0X&a-25V&a+1R Name: Ann Mcgarry : 1930 F86 MedRec: [id number] AcctNum: [id number] Prepared: FriDec 16, 2016 19:10 by Interface Page 5 of 5 pMD MTDD
[2016-12-16 19:35] VITALS: BMI 21.4
[2016-12-16] MEDS ORDERED: HYDROcodone/Acetaminophen 5/325 mg Tablet PO PRN (19:38)
[2016-12-16] MEDS ORDERED: Acetaminophen 325 MG TAB PO PRN (19:38)
[2016-12-16] MEDS ORDERED: Ondansetron HCl/PF 4 MG/2 ML Vial IVP PRN (19:38)
[2016-12-16] MEDS ORDERED: Ondansetron ODT 4 MG TAB SL PRN (19:38)
[2016-12-16] MEDS ORDERED: diphenhydrAMINE HCl 50 MG/ML 1 ML VIAL IVP PRN (19:40)
--- NOTE | 2016-12-16 19:40 | CT ---
CT ABDOMEN AND PELVIS WITH CONTRAST: Date: 12-16-16 FINDINGS: No major infiltrate or effusion was seen in the lung bases. The liver, spleen, pancreas, and adrena l glands were unremarkable in appearance. The gallbladder contains no calcifications. The aorta sh ows no aneurysm, though the origin of the celiac artery may have some stenoses in it. Some lucencie s in each kidney are probably cysts. There are some nonspecific fluid filled loops of small bowel, the largest measuring up to 2.9 cm in diameter. This is a nonspecific finding and could mean little or nothing in this patient, or it cou ld signify enteritis. No free air was seen. No thickening of bowel loops were apparent. CT of the pelvis shows a distended urinary bladder. No pelvic masses or substantial free fluid was seen. Extensive degenerative changes are present in the spine. There is spinal stenosis at least at L4-5 if not other levels. IMPRESSION: 1. Nonspecific fluid filled loops of small bowel. 2. 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 POS: HOME
[2016-12-16] MEDS ORDERED: Potassium Chloride 20 MEQ TAB PO SCH (20:00)
[2016-12-16] MEDS: Sodium Chloride 0.9% 1,000 ML IV SCH (21:30)
[2016-12-16] MEDS: Apixaban 5 MG TAB PO SCH (21:38)
[2016-12-16] MEDS: Lisinopril 20 MG TAB PO SCH (21:38)
--- NOTE | 2016-12-16 23:54 | HP ---
DATE OF ADMISSION: 12/16/2016 CHIEF COMPLAINT: Abdominal pain. HISTORY OF PRESENT ILLNESS: An 86-year-old female who presented to [facility] with complaints of abdominal pain that began within the last 24 hours. Her pain was notably located at periumbilical/suprapubic with accompanying symptoms including dysuria and urinary frequency; no fever or flank pain. She reported decreased intake secondary to her clinical symptoms. Upon evaluation of her labs, she has electrolyte abnormalities including hyponatremia and hypokalemia and further displays a urinary tract infection. In the emergency department, she was started on Rocephin, urine cultures obtained prior to this. She was also provided intravenous fluids secondary to her dehydrated state. Her blood pressure was notably elevated, which is not atypical for this patient in the clinical setting. However, her other vitals were notably stable and she has no leukocytosis. She will be admitted for further antibiotic treatment, electrolyte repletion and improvement of her dehydration. PAST MEDICAL HISTORY: Hypertension, coronary artery disease, chronic back pain , history of pulmonary embolus, cancer of lip. PAST SURGICAL HISTORY: 1. Hysterectomy. 2. Eye surgery. 3. 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 4. Left mastectomy. SOCIAL HISTORY: Nonsmoker. Education to the level of high school. No alcohol or illicit drug use. FAMILY HISTORY: Spouse is alive, four healthy daughters. ALLERGIES: PENICILLIN. CURRENT MEDICATIONS: Lisinopril 20 mg p.o. b.i.d., amlodipine 10 mg p.o. daily , metoprolol/hydrochlorothiazide 100-50 mg p.o. daily, timolol 0.5% solution one drop into affected eye daily and Eliquis 5 mg p.o. b.i.d. REVIEW OF SYSTEMS: General: The patient has fatigue. Denies fever, chills or diaphoresis. Ear, Nose, and Throat: Denies sore throat, nasal drainage or congestion. Cardiovascular: Denies chest pain or palpitations. Respiratory: Denies shortness of breath or cough. Gastrointestinal: Reports mild abdominal discomfort. Denies constipation or diarrhea. Nausea, but no cyanosis. Genitourinary: Reports dysuria and urinary frequency. Denies hematuria. Musculoskeletal: Denies joint swelling or pain. Dermatologic: Denies rash. Neurologic: Denies headache. LABORATORY DATA: White blood cell count is 6.5, hemoglobin and hematocrit is 13.8/40.6. Sodium is 124, potassium is 3.1, GFR was greater than 90, glucose 144, normal LFTs. Lipase is 15. Urine was positive for nitrites and leukocyte esterase. CT of the abdomen and pelvis was done with no notable acute findings per preliminary read, official read is pending. PHYSICAL EXAMINATION: VITAL SIGNS: 98.2, 67, 157/72, 18, 96% on RA GENERAL: The patient is alert and oriented, in no acute distress. HEENT: Eyes: Pterygium. Spinning over the right iris. Extraocular muscles are intact. Head: Normocephalic and atraumatic. Ears: Canals are clear. Tympanic membranes are pearly bilaterally. Upper lip is largely missing from prior surgeries/radiation. The patient is edentulous NECK AND THYROID: Supple, full range of motion. No lymphadenopathy, no meningeal signs. No thyromegaly. CARDIOVASCULAR: Normal S1, S2, regular rate and rhythm, 2/6 systolic murmur. RESPIRATORY: Clear to auscultation bilaterally without wheezes, rales or rhonchi. GASTROINTESTINAL: Soft, nontender to palpation, no masses, no organomegaly. EXTREMITIES: Warm and well well-perfused. No clubbing, cyanosis or edema. SKIN: No rash. NEUROLOGICAL: Nonfocal exam. Cranial nerves II-XII are grossly intact. ASSESSMENT AND PLAN: 1. Urinary tract infection. We will continue Rocephin for urinary tract infection and follow up obtained urine cultures. 2. Dehydration. Actively hydrating patient with intravenous fluids, normal saline at 100 mL an hour. 3. Hyponatremia and hypokalemia. We will provide 40 mEq of potassium chloride p.o. once with follow up BMP in the morning. Hyponatremia should improve with normal saline and this also will be assessed in the morning with a BMP. 4. Hypertension. We will continue patient's home medications. Hydralazine has been added for p.r.n. use for blood pressure control. 5. Prophylaxis. The patient is anticoagulated with Eliquis. We will add Protonix. MTDD
[2016-12-17] MEDS ORDERED: diphenhydrAMINE HCl 50 MG/ML 1 ML VIAL ONE (03:49)
[2016-12-17 05:44] LABS: Anion Gap 14 mmol/L (10-20); BUN (Urea Nitrogen) 4 mg/dL (9.8-20.1); Calc. Creatinine Clearance 70 mL/min (70-130); Calcium 8.7 mg/dL (7.8-10.44); Carbon Dioxide 25 mmol/L (23-31); Chloride 88 mmol/L (98-107); Estimated GFR-MDRD Greater than 90
[2016-12-17] MEDS: Sodium Chloride 0.9% 1,000 ML IV SCH (05:50)
[2016-12-17] MEDS ORDERED: Zolpidem Tartrate 5 MG TAB PO PRN (07:38)
[2016-12-17] MEDS ORDERED: Sodium Chloride 0.9% 1,000 ML IV SCH (07:39)
[2016-12-17] MEDS ORDERED: FLU VACC TS2016-17(65YR +) 0.5 ML SYRINGE IM ONE (09:00)
[2016-12-17] MEDS ORDERED: Lisinopril 20 MG TAB PO SCH (09:00)
[2016-12-17] MEDS ORDERED: METOPROLOL PO SCH (09:00)
[2016-12-17] MEDS ORDERED: HYDROCHLOROTHIAZIDE PO SCH (09:00)
[2016-12-17] MEDS ORDERED: [UNRECOGNIZED DRUG - OTHER] PO SCH (09:00)
[2016-12-17] MEDS: Potassium Chloride 20 MEQ TAB PO SCH ×2 (09:17→17:52)
[2016-12-17] MEDS: Metoprolol Tartrate 25 MG TAB PO SCH (09:18)
[2016-12-17] MEDS: Apixaban 5 MG TAB PO SCH ×2 (09:19→20:40)
[2016-12-17] MEDS: Hydrochlorothiazide 25 MG TAB PO SCH (09:19)
[2016-12-17] MEDS: Lisinopril 20 MG TAB PO SCH ×2 (09:39→20:40)
[2016-12-17] MEDS ORDERED: cefTRIAXone\\ROCEPHIN 2 GM in Sodium Chloride 0.9% 100 ML IVPB SCH (18:00)
[2016-12-18 03:12] VITALS: TEMP 98.4
[2016-12-18 06:08] LABS: Anion Gap 13 mmol/L (10-20); BUN (Urea Nitrogen) 5 mg/dL (9.8-20.1); Calc. Creatinine Clearance 68 mL/min (70-130); Calcium 8.6 mg/dL (7.8-10.44); Carbon Dioxide 22 mmol/L (23-31); Chloride 97 mmol/L (98-107); Estimated GFR-MDRD Greater than 90
--- NOTE | 2016-12-18 08:11 | DIS ---
DATE OF ADMISSION 12/16/2016 DATE OF DISCHARGE: 12/18/2016 ADMISSION DIAGNOSES: Abdominal pain, urinary tract infection, dehydration, hyponatremia, hypokalemia and hypertension. DISCHARGE DIAGNOSES: 1. Hypertension. 2. Coronary artery disease. 3. Chronic back pain. 4. History of pulmonary embolus. 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 6. Urinary tract infection. 7. Hypokalemia, resolved. 8. Hyponatremia, improved. PROCEDURES: A CT scan of the abdomen and pelvis performed 12/16/2016 showing nonspecific fluid filled loops of small bowel with 2) there may be some degree stenosis of the proximal celiac artery. HOSPITAL COURSE: An 86-year-old female who presented to [facility] with abdominal pain along with nausea and vomiting. She was subsequently found to have electrolyte abnormalities including hyponatremia and hypokalemia and a urinary tract infection. She was also notably dehydrated. She was admitted and provided intravenous fluids and started on a clear liquid diet which was advanced and tolerated well by the patient. She was provided potassium chloride supplementation and her potassium level was normalized. Her sodium level did improve during her stay, but has not completely normalized at this time. She will need follow up BMP when seen next week in the clinic. As far as the urinary tract infection, the patient was provided IV Rocephin; she remained afebrile throughout her stay with no signs or symptoms of systemic infection. She will be continued on 3 additional days of Ceftin as an outpatient. Her urinary cultures will need to be followed up as well to ensure proper treatment. The patient's blood pressure remained stable throughout her stay. The patient's abdominal pain subsided and as previously stated she tolerated a full diet and is now appropriate for discharge home. DISPOSITION: The patient will return home where she lives with her and follow up in the clinic with myself next week. DISCHARGE MEDICATIONS: Two new medications will include potassium chloride 10 mEq p.o. daily, with recommended follow up BMP next week and Ceftin 500 mg p.o. b.i.d. x3 days. She will resume her home medications which include lisinopril 20 mg p.o. b.i.d., amlodipine 10 mg p.o. daily, metoprolol/hydrochlorothiazide 100/50 mg p.o. daily, timolol 0.5% solution 1 drop in affected eye daily and Eliquis 5 mg p.o. b.i.d. MTDD
[2016-12-18] MEDS: Hydrochlorothiazide 25 MG TAB PO SCH (08:20)
[2016-12-18] MEDS: Metoprolol Tartrate 25 MG TAB PO SCH (08:21)
[2016-12-18] MEDS: Apixaban 5 MG TAB PO SCH (08:21)
[2016-12-18] MEDS: Lisinopril 20 MG TAB PO SCH (08:22)
[2016-12-18 08:23] VITALS: BP 155/71
== END 2016-12-18 10:30 | disposition home or self-care (01) | DRG 690 ==
LOC: BURERS 15:23 → BURMED 18:31 → OBSVTOIN 12-17 16:36
PROVIDERS: ADMIT Family Medicine; ATTEND Family Medicine
DX: N39.0 Urinary tract infection, site not specified (principal); E87.1 Hypo-osmolality and hyponatremia; E86.0 Dehydration; I10 Essential (primary) hypertension; Z86.711 Personal history of pulmonary embolism; Z88.0 Allergy status to penicillin; Z79.02 Long term (current) use of antithrombotics/antiplatelets; E87.6 Hypokalemia; I25.10 Atherosclerotic heart disease of native coronary artery without angina pectoris; M54.9 Dorsalgia, unspecified; Z85.819 Personal history of malignant neoplasm of unspecified site of lip, oral cavity, and pharynx; G47.00 Insomnia, unspecified
CPT/HCPCS: 36415; 74177; 80048; 80053; 81003; 81015; 83690; 85025; 87077; 87086; 87186; 93005; 96361; 96365; 96375; 96376; A4216; J0360; J0696; J1200; J2270; J2405; J7050

== ENCOUNTER 2016-12-27 10:20 | Outpatient (CLI) | payer MEDICARE ==
[2016-12-27 11:01] LABS: Anion Gap 11 mmol/L (10-20); BUN (Urea Nitrogen) 10 mg/dL (9.8-20.1); Calc. Creatinine Clearance 0 mL/min (70-130); Calcium 9.5 mg/dL (7.8-10.44); Carbon Dioxide 27 mmol/L (23-31); Chloride 99 mmol/L (98-107); Estimated GFR-MDRD 76
== END 2016-12-27 10:21 | disposition home or self-care (01) ==
LOC: HPCALD 10:20
PROVIDERS: ATTEND Family Medicine
DX: E87.6 Hypokalemia (principal)
CPT/HCPCS: 36415; 80048

== ENCOUNTER 2017-09-16 14:57 | Emergency (ER) | payer MEDICARE | END 2017-09-16 16:34 | disposition home or self-care (01) | LOC: BURERS 14:57 | DX: I10 Essential (primary) hypertension (principal); E78.5 Hyperlipidemia, unspecified; Z79.899 Other long term (current) drug therapy | CPT/HCPCS: 96374; J0360 ==

== ENCOUNTER 2018-01-05 11:17 | Emergency (ER) | payer MEDICARE ==
[2018-01-05 12:02] LABS: ALT (SGPT) 9 U/L (8-55); AST (SGOT) 11 U/L (5-34); Albumin 3.8 g/dL (3.4-4.8); Alkaline Phosphatase 53 U/L (40-150); Anion Gap 14 mmol/L (10-20); BUN (Urea Nitrogen) 17 mg/dL (9.8-20.1); Bilirubin, Total 0.5 mg/dL (0.2-1.2); Calc. Creatinine Clearance 0 mL/min (70-130); Calcium 9.7 mg/dL (7.8-10.44); Carbon Dioxide 24 mmol/L (23-31); Chloride 94 mmol/L (98-107); Estimated GFR-MDRD 42; Globulin 2.3 g/dL (2.4-3.5); Glucose 91 mg/dL (83-110); Potassium 5.2 mmol/L (3.5-5.1); Protein, Total 6.1 g/dL (6.0-8.3); Sodium 127 mmol/L (136-145)
[2018-01-05 12:04] LABS: CKMB 0.6 ng/mL (0-6.6); Troponin I 0.012 ng/mL (< 0.028)
[2018-01-05 12:05] LABS: #Basophils 0.1 thou/uL (0.0-0.2); #Eosinphils 0.1 thou/uL (0.0-0.7); #Lymphocytes 0.6 thou/uL (1.20-3.40); #Monocytes 0.6 thou/uL (0.11-0.59); #Neutrophils 3.6 thou/uL (1.40-6.50); %Basophils 1.2 % (0.0-1.0); %Eosinophils 1.4 % (0.0-10.0); %Lymphocytes 12.7 % (21.0-51.0); %Monocytes 12.2 % (0.0-10.0); %Neutrophils 72.7 % (42.0-75.0); Hemoglobin 12.2 g/dL (12.0-16.0); Mean Corpuscular HGB CONC 34.3 g/dL (32.0-36.0); Mean Corpuscular Hemoglobin 30.7 pg (27.0-31.0); Mean Corpuscular Volume 89.5 fl (81.0-99.0); Mean Platelet Volume 5.7 fL (7.4-10.4); Platelet Count 299 thou/uL (130-400); RBC Distribution Width 10.4 % (11.5-14.5); Red Blood Cell (RBC) Count 3.99 mill/uL (4.20-5.40)
[2018-01-05 14:20] LABS: Troponin I 0.011 ng/mL (< 0.028)
== END 2018-01-05 14:33 | disposition home or self-care (01) ==
LOC: BURERS 11:17
DX: R53.1 Weakness (principal); I95.9 Hypotension, unspecified; T50.0X5A Adverse effect of mineralocorticoids and their antagonists, initial encounter; T46.5X5A Adverse effect of other antihypertensive drugs, initial encounter; E78.5 Hyperlipidemia, unspecified; I10 Essential (primary) hypertension; Z79.899 Other long term (current) drug therapy
CPT/HCPCS: 36415; 80053; 82553; 83880; 84484; 85025; 93005

== ENCOUNTER 2018-12-13 11:08 | Emergency (ER) | payer MEDICARE ==
[2018-12-13 11:38] LABS: #Basophils 0.1 thou/uL (0.0-0.2); #Lymphocytes 0.9 thou/uL (1.20-3.40); #Monocytes 0.9 thou/uL (0.11-0.59); #Neutrophils 15.3 thou/uL (1.40-6.50); %Basophils 0.4 % (0.0-1.0); %Eosinophils 0.1 % (0.0-10.0); %Neutrophils 89.6 % (42.0-75.0); Mean Corpuscular HGB CONC 34.1 g/dL (32.0-36.0); Mean Corpuscular Volume 88.1 fL (78.0-98.0); Mean Platelet Volume 5.7 fL (7.4-10.4); Platelet Count 472 thou/uL (130-400); RBC Distribution Width 11.7 % (11.5-14.5); Red Blood Cell (RBC) Count 5.65 mill/uL (4.20-5.40); White Blood Cell (WBC) Count 17.1 thou/uL (4.8-10.8)
[2018-12-13 11:46] LABS: Prothrombin Time 12.9 SEC (12.0-14.7)
[2018-12-13 11:47] LABS: PTT 27.7 SEC (22.9-36.1)
[2018-12-13 11:52] LABS: ALT (SGPT) 20 U/L (8-55); AST (SGOT) 19 U/L (5-34); Alkaline Phosphatase 132 U/L (40-150); Anion Gap 21 mmol/L (10-20); BUN (Urea Nitrogen) 7 mg/dL (9.8-20.1); Bilirubin, Total 0.7 mg/dL (0.2-1.2); Calc. Creatinine Clearance 0 mL/min (70-130); Calcium 9.9 mg/dL (7.8-10.44); Carbon Dioxide 23 mmol/L (23-31); Chloride 93 mmol/L (98-107); Estimated GFR-MDRD 85; Glucose 206 mg/dL (83-110); Sodium 134 mmol/L (136-145)
[2018-12-13] MEDS ORDERED: Potassium Chloride 20 MEQ/100 ML PREMIX BAG ONE (12:04)
[2018-12-13 12:09] LABS: CKMB 1.2 ng/mL (0-6.6)
[2018-12-13] MEDS ORDERED: Levofloxacin 500 mg/D5W 100 ml Premix Bag ONE (12:15)
[2018-12-13 12:16] LABS: Clarity Cloudy (Clear); Glucose, Urine (Dipstick) Negative (Negative); Leukocyte Moderate (Negative); Nitrite Negative (Negative); Protein, Urine (Dipstick) > or equal to 300 mg/dL (Neg-Trace); Specific Gravity, Urine 1.025 (1.005-1.030); pH, Urine 6.5 (5.0-9.0)
[2018-12-13 12:17] LABS: Bacteria/HPF 2+ HPF (None Seen); Bilirubin Negative (Negative); Blood, Urine Small (Negative); Crystals/HPF None Seen HPF (Negative); Hyaline Casts/LPF 0-3 HYALINE CAST LPF (0-3 Hyaline); Other Casts/LPF None Seen LPF (0-3 Hyaline); Oval Fat Bodies/HPF None Seen HPF (None Seen); RBC/HPF 0-3 HPF (0-3); Renal Epithelial None Seen HPF (0-3); Sperm/HPF None Seen HPF (None Seen); Squamous Epithelial 0-3 HPF (0-3); Transitional Epithelial NONE SEEN HPF (0-3); Trichomonas/HPF None Seen HPF (None Seen); WBC/HPF 21-50 HPF (0-3); Yeast-All Forms None Seen HPF (None Seen)
[2018-12-13] MEDS ORDERED: Aspirin 300 MG Suppository ONE ×2 (12:26→12:31)
[2018-12-13] MEDS ORDERED: Acetaminophen 650 MG Suppository ONE (12:26)
--- NOTE | 2018-12-13 13:06 | CT ---
CT OF THE BRAIN WITHOUT CONTRAST: DATE: 12/13/2018. FINDINGS: A noncontrast CT was done for evaluation of weakness and slurred speech. No prior scans were availab le for comparison. A moderate degree of atrophy is present. The ventricles are normal in size for age and atrophy and s how no shift. There is patchy deep white matter lucency that is most consistent with chronic microva scular ischemia. A small acute stroke would be missed against this background. There were no findin gs that were strongly suspicious for a stroke, however. Some basal ganglia calcifications were noted . The visible paranasal sinuses are clear and the calvarium appeared intact. IMPRESSION: Atrophy and chronic ischemic change, but no acute intracranial findings. MRI would be more sensitive to small acute events. Findings called to Dr. Leon at 1155 on 12/13/2018. CODE CR POS: HOME
--- NOTE | 2018-12-13 13:24 | CT ---
CTA HEAD WITH CONTRAST CTA NECK WITH CONTRAST: CTA HEAD WITH CONTRAST: Multiple axial tomograms were obtained through the head following the cerebral angio protocol with mu ltiplanar reconstructions and 3D post processing. INDICATION: Confusion. Stroke protocol. FINDINGS: The intracranial internal carotid arteries are patent. There is atherosclerotic calcification of the cavernous portions of both ICAs without evidence of significant stenosis. Anterior cerebral arteries appear patent and symmetric. Middle cerebral arteries are patent and symmetric without evidence of focal stenosis or occlusion. Basilar artery is patent. Posterior cerebral arteries appear patent and symmetric. IMPRESSION: No evidence of proximal stenosis or occlusion involving the cerebral arteries. CTA NECK WITH CONTRAST: Multiple axial tomograms obtained through the neck with IV enhancement. INDICATION: Stroke protocol. FINDINGS: No evidence of stenosis at the origin of the arch vessels. Both common carotid arteries are patent and symmetric with mild atherosclerotic change. No evidence of stenosis. Atherosclerotic change is seen in both bulb regions. On the right, atherosclerotic calcifications involve the bulb and proximal right ICA. There is evide nce of hemodynamically significant stenosis involving the proximal right ICA estimated at 70% diamete r stenosis by NASCET criteria. There is atherosclerotic calcification in the left bulb and left ICA. This produces only mild stenos is in the proximal left ICA which does not appear to be hemodynamically significant. Review of the vertebral arteries shows a mildly dominant right vertebral. The left vertebral is butler nt to the basilar artery, although there is evidence of stenosis at the base of the skull. The right vertebral appears to occlude at the base of the skull with collaterals filling the basilar artery. The basilar artery is patent. IMPRESSION: 1. 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 2. 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 Question stenosis of the left vertebral artery at the base of the skull. The basil ar artery is patent. POS: [facility]
--- NOTE | 2018-12-13 19:23 | RAD ---
PORTABLE CHEST: Date: 12-13-18 An AP portable film at 1203 is compared to the 03-16-15 study. FINDINGS: Diffuse vascular congestion, edema, and significant bilateral pleural effusions are present. The hear t is mildly enlarged. Fluid is slightly greater on the left than the right. IMPRESSION: CHF. POS: HOME
== END 2018-12-13 13:03 | disposition short-term general hospital (02) ==
LOC: BURERS 11:08
DX: A41.9 Sepsis, unspecified organism (principal); G93.40 Encephalopathy, unspecified; J81.1 Chronic pulmonary edema; N39.0 Urinary tract infection, site not specified; I10 Essential (primary) hypertension; E78.5 Hyperlipidemia, unspecified; Z79.899 Other long term (current) drug therapy
CPT/HCPCS: 36416; 51702; 70450; 70496; 70498; 71045; 80053; 81003; 81015; 82553; 83605; 83880; 84484; 85025; 85610; 85730; 87040; 87077; 87086; 87149; 87186; 93005; 96365; 96368; J1956; J3370; J3480